=== PATIENT | male | born 1960 | race Caucasian/White ===

== ENCOUNTER 2019-03-27 06:55 | Inpatient (IN) ==
--- NOTE | 2019-03-27 07:23 | PROVIDER DOCUMENTATION ---
HPI-Syncope/Dizziness - General Chief Complaint: Stroke-Like Symptoms Stated Complaint: NEAR SYNCOPE,LT SIDE NUMB,DIZZINESS Time Seen by Provider: 03/27/19 07:19 Allergies/Adverse Reactions: Patient Allergies Allergy/AdvReac Type Severity Reaction Status Date / Time aspirin Allergy Severe ANAPHYLAXIS Verified 03/25/19 01:54 Home Medications: Home Medication List Medication Instructions Recorded Confirmed Last Taken Type Bisoprolol/Hydrochlorothiazide 1 ea PO DAILY 03/25/19 03/25/19 1 Day Ago History [Bisoprolol-Hctz 10-6.25 mg Tab] ~03/24/19 Dicyclomine [Bentyl] 10 mg PO Q6H PRN #30 cap 03/25/19 Unknown Rx Ergocalciferol (Vitamin D2) 1 cap PO Q7D 03/25/19 03/25/19 03/20/19 History [Vitamin D] Ketorolac [Toradol] 10 mg PO Q6H PRN PRN #20 tab 03/25/19 Unknown Rx Lisinopril 10 mg PO BID 03/25/19 03/25/19 1 Day Ago History ~03/24/19 Methocarbamol 500 mg PO QHS 03/25/19 03/25/19 1 Day Ago History ~03/24/19 Omeprazole 40 mg PO DAILY 03/25/19 03/25/19 1 Day Ago History ~03/24/19 Ondansetron [Zofran] 4 mg PO Q6H PRN PRN #30 tab 03/25/19 Unknown Rx Tramadol HCl 50 mg PO BID 03/25/19 03/25/19 1 Day Ago History ~03/24/19 - History of Present Illness-Syncope/Dizzy Nature of Presenting Problem: family reported that patient woke at 4:00 AM stated that his left side was numbed and he felt fainting. in the ER patient stated he was fine at this moment, no longer feeling numb or faint. patient denied pain, appeared comfortable. Onset/Duration: reports: this morning Timing: reports: resolved prior to arrival Position/Activity at time of episode: reports: standing Symptoms prior to episode: denies: headache, visual disturbance, nausea/vomiting, chest pain, rapid heart beat Loss of Consciousness: no loss of consciousness Location of injury. (If syncope resulted in an injury.): reports: head Current Symptoms: reports: lightheaded. denies: fever, chills, chest pain, abdominal pain, weakness, headache, headache, blurred vision, lightheaded - Dizziness Severity in ED: reports: moderate Dizziness Related Current/Associated Symptoms: reports: dizzy. denies: nausea/vomiting, headache Any recent trauma/injury?: reports: none Modifying Factors: improves with: nothing Patient usually:: reports: walks without assistance Review of Systems - Adult - REVIEW OF SYSTEMS - ADULT Constitutional: denies: fever, fatique Eyes: reports: no symptoms reported Ears, Nose, Mouth & Throat: reports: no symptoms reported Cardiovascular: reports: no symptoms reported Respiratory: reports: no symptoms reported Gastrointestinal: reports: no symptoms reported Genitourinary: reports: no symptoms reported Musculoskeletal: reports: no symptoms reported Integumentary: reports: no symptoms reported Neurological: reports: numbness, paresthesia, other (fainting). denies: slurred speech, syncope, tremors Psychiatric: reports: no symptoms reported Endocrine: reports: no symptoms reported Hematologic/Lymphatic: reports: no symptoms reported Allergic/Immunologic: reports: no symptoms reported Past History - Adult - PAST MEDICAL HISTORY-ADULT Review of Records: reports: Nursing Assessment Review Physical Exam-General - PHYSICAL EXAM-ADULT Initial Vital Signs Reviewed: Yes - CONSTITUTIONAL General Appearance: appears well, alert, no apparent distress - EYES Eyes: PERRL/EOMI - HEAD, EARS, NOSE, MOUTH & THROAT HENMT: normocephalic/atraumatic - NECK Neck: non-tender - RESPIRATORY Respiratory: chest non-tender, lungs clear, normal breath sounds, no pleuratic chest pain, no respiratory distress - CARDIOVASCULAR Cardiovascular: normal peripheral pulses, no edema, no JVD, bradycardia - GASTROINTESTINAL (ABDOMEN) Abdominal Exam: non tender, soft, no organomegaly - LYMPHATIC Lymphatic: no adenopathy - MUSCULOSKELETAL Back Exam: normal inspection, no CVA tenderness, no vertebral tenderness Extremity: normal range of motion, non-tender, normal gait, normal inspection, no pedal edema - SKIN Integumentary: normal color, normal turgor, warm/dry - 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 negative: aphasia, facial droop, focal weakness, motor weakness - PSYCHIATRIC Psych/Mental Status: normal mood/affect, normal thought content, normal thought process Progress - PLAN OF CARE/RESULTS Progress/Plan/Lab Results: Vital Signs - 8 hr 03/27/19 07:00 Temperature 97.9 F Pulse Rate 50 L Respiratory Rate 19 Blood Pressure 195/92 O2 Sat by Pulse Oximetry 100 Orders Category Date Time Status Cardiac Monitoring DIRECTED Care 03/27/19 07:05 Active Finger Stick Blood Sugar (ED) DIRECTED Care 03/27/19 07:05 Active Saline Loc NOW Care 03/27/19 07:05 Active CHEST-PORTABLE [RAD] Stat Exams 03/27/19 07:[address] HEAD W/O CONTRAST [CT] Stat Exams 03/27/19 07:05 Ordered CBC WITH ELECTRONIC DIFF [HEME] Stat Lab 03/27/19 07:05 Uncollected COMPREHENSIVE METABOLIC PANEL [CHEM] Stat Lab 03/27/19 07:05 Uncollected PROTIME WITH INR [COAG] Stat Lab 03/27/19 07:05 Uncollected PTT [COAG] Stat Lab 03/27/19 07:05 Uncollected TROPONIN T Stat Lab 03/27/19 07:05 Uncollected URINALYSIS W/POSS RFLX CULT [URINALYSIS] Stat Lab 03/27/19 07:05 Uncollected URINE DRUG SCREEN Stat Lab 03/27/19 07:05 Uncollected EKG [EKG] Stat Ther 03/27/19 07:05 Ordered Departure - Departure Referrals and Follow-Ups: Nora Cunningham [Primary Care Provider] -
[2019-03-27 07:35] LABS: BASO# 0.03 X1000 (0.0-0.2); BASO% 0.4 % (0.0-0.8); EOS# 0.26 X1000 (0.0-0.7); EOS% 3.7 % (0.0-10.0); HEMATOCRIT 44.8 % (42.0-52.0); HEMOGLOBIN 15.2 g/dL (14.0-18.0); IMM GRAN# 0.02 X1000 (0.0-0.04); IMM GRAN% 0.3 % (0.0-0.5); LYMPH# 2.22 X1000 (1.2-3.4); LYMPH% 31.3 % (20.5-51.1); MCH 27.5 PG (27-31); MCHC 33.9 g/dL (33-37); MCV 81.2 FL (81-99); MONO% 7.1 % (1.7-9.3); MPV 10.5 FL (7.4-10.4); NEUT# 4.06 X1000 (1.4-6.5); NEUT% 57.2 % (42.2-75.2); PLT 207 X1000 (130-400); RBC 5.52 XMIL (4.7-6.1); RDW 14.2 % (11.5-14.5); WBC 7.09 X1000 (4.8-10.8)
--- NOTE | 2019-03-27 07:48 | Diag Imaging Result Doc PS360 ---
CHEST-PORTABLE - 03/27/2019 INDICATION: stroke like symptoms COMPARISON: None FINDINGS: There is a characteristic epicardial fat pad at the cardiac apex. The lungs are clear. Heart size is normal. No pneumothorax or pleural effusion. IMPRESSION: Negative exam. Electronically signed by Nahun Forte 03/27/2019 7:46 AM
[2019-03-27 07:49] LABS: INR 1.17
[2019-03-27 07:50] LABS: PTT 32.7 Seconds (22.3-41.8)
[2019-03-27 07:56] LABS: AGAP 9; ALB/GLOB RATIO 1.2; ALBUMIN 4.2 g/dL (3.5-5.0); ALKALINE PHOSPHATASE 95 U/L (32-122); BUN 15 mg/dL (8-22); CALCIUM 8.9 mg/dL (8.8-10.2); CHLORIDE 103 mmol/L (98-107); COSMO 279; CREATININE 0.9 mg/dL (0.7-1.2); ESTIMATED GFR > 60; GLUCOSE 140 mg/dL (70-104); GOT 23 U/L (10-34); GPT 36 U/L (10-44); SODIUM 138 mmol/L (136-145); TCO2 26 mmol/L (25-35); TOTAL BILIRUBIN 0.44 mg/dL (0.20-1.00); TOTAL PROTEIN 7.8 g/dL (6.3-8.3)
--- NOTE | 2019-03-27 07:58 | Diag Imaging Result Doc PS360 ---
CT HEAD W/O CONTRAST - 03/27/2019 INDICATION: stroke like symptoms COMPARISON: None FINDINGS: The ventricles and sulci are normal in size and contour. There is trace periventricular white matter chronic microvascular ischemia. No intracranial mass or hemorrhage. The skull is intact. The sinuses mastoids and middle ears are clear. IMPRESSION: No acute process. This exam was performed using automated exposure control, adjustment of mA or kV according to patient size, and/or use of iterative reconstruction technique Electronically signed by Nahun Forte 03/27/2019 7:56 AM
--- NOTE | 2019-03-27 08:20 | EKG Report ---
Test Performed on : 03/27/2019 07:18:08 AM Test Reason : Stroke like symptoms Blood Pressure : / mmHG Vent. Rate : 048 BPM Atrial Rate : 048 BPM P-R Int : 230 ms QRS Dur : 092 ms QT Int : 462 ms P-R-T Axes : 034 008 039 degrees QTc Int : 412 ms Sinus bradycardia. with 1st degree AV block. Possible Inferior infarct , age undetermined Abnormal ECG No previous ECGs available Unconfirmed Result
[2019-03-27 08:58] LABS: URINE SOURCE CLEAN CATCH
[2019-03-27 09:10] LABS: BILIRUBIN URINE NEGATIVE (NEGATIVE); BLOOD URINE NEGATIVE (NEGATIVE); COLOR YELLOW; GLUCOSE URINE NEGATIVE (NEGATIVE); KETONE URINE NEGATIVE (NEGATIVE); LEUKOCYTES URINE NEGATIVE (NEGATIVE); NITRITE URINE NEGATIVE (NEGATIVE); PH URINE 6.5; PROTEIN URINE TRACE mg/dL (NEGATIVE); SP GRAVITY URINE 1.028; TURBIDITY URINE CLEAR (CLEAR); UROBILINOGEN URINE 2 mg/dL (NORMAL)
[2019-03-27 09:15] LABS: UR EPITHELIAL CELLS <10 /HPF (<10); URINE BACTERIA NEGATIVE /HPF; URINE RBC <10 /HPF (<10); URINE WBC <10 /HPF (<10)
[2019-03-27 09:19] LABS: UR AMPHETAMINES QUAL NONE DETECTED (NONE DETECT); UR BARBITUATES QUAL NONE DETECTED (NONE DETECT); UR BENZODIAZEPIN QUAL NONE DETECTED (NONE DETECT); UR CANNABINOIDS QUAL NONE DETECTED (NONE DETECT); UR COCAINE QUAL NONE DETECTED (NONE DETECT); UR METHADONE QUAL NONE DETECTED (NONE DETECT); UR OPIATES QUAL NONE DETECTED (NONE DETECT); UR OXYCODONE QUAL NONE DETECTED (NONE DETECT); UR PCP QUAL NONE DETECTED (NONE DETECT)
[2019-03-27] MEDS ORDERED: TYLENOL PO PRN (09:24)
[2019-03-27] MEDS ORDERED: ZOFRAN IV PRN (09:24)
--- NOTE | 2019-03-27 11:00 | HISTORY AND PHYSICAL ---
PRIMARY CARE PROVIDER: Dr. Nora Cunningham. HISTORY OF PRESENT ILLNESS: Mr. Triana is a 58-year-old male who carries a past medical history of bladder issues for which he is scheduled for surgery on 04/[address] Mario Leavitt, hypertension, arthritis for which he takes tramadol, restless leg syndrome for which he takes methocarbamol, GERD, reported CA 4 years ago, was recently given Toradol for gallbladder attack this past Monday night, but has not been taken yet. He reported issues with inner ear over a year ago. He has since had on and off dizziness since that time but has increased over the last 3 months. He reports at 4:00 a.m. this morning he had dizziness, head spinning, broke out in a cold sweat and the entire left side of his body went numb. There was no reported facial drooping or slurred speech. It had resolved by the time he got to the ED but he was having residual dizziness. His head CT did not show anything acute. We will put him on Povo, monitor his heart rate. He has been bradycardic with a first-degree AV block in the 40s. We are gong to hold all his home medications for now as some of those can calls dizziness and stroke-like symptoms as well. We will do a full neurological workup. PAST MEDICAL HISTORY: 1. Gallbladder issues, scheduled for surgery on 04/05. 2. Hypertension. 3. Arthritis. 4. Restless leg syndrome. 5. Gastroesophageal reflux disease. 6. Reported myocardial infarction 4 years ago. PAST SURGICAL HISTORY: Left shoulder surgery repair of ligaments after a dislocation. ALLERGIES: To aspirin, ibuprofen causes anaphylaxis. His throat swells. SOCIAL HISTORY: He is . Five children. Works as a diesel truck and plumbing contractor. FAMILY HISTORY: Mother of an CA at the age of 75. Brother of throat cancer. Sister was with brain cancer. REVIEW OF SYSTEMS: Twelve-point review of systems completely negative except for those mentioned in HPI. PHYSICAL EXAMINATION: VITAL SIGNS: Temperature is 97.7 degrees, heart rate 47, respirations 18, blood pressure 193/81, O2 is 97% on room air. GENERAL: Mr. Triana is a 58-year-old gentleman who is sitting up in the stretcher in no acute distress. HEENT: Atraumatic, normocephalic. JF. Poor dentition. Trachea midline. CARDIOVASCULAR: S1, S2 appreciated. No murmurs, gallops, or rubs noted. No lower extremity edema. RESPIRATORY: Lung sounds clear bilaterally. GI: GI was soft, nontender, nondistended. Positive bowel sounds 4 quadrants. NEUROLOGIC: Patient is awake, alert, oriented x4. Follows commands. Moves all extremities. Tongue midline. No residual numbness. Strong shoulder shrug. No pronator drift. No focal deficits noted. EXTREMITIES: Upper and lower extremity strength 5/5 small symmetrical. DIAGNOSTIC DATA: 1. Chest x-ray negative exam. 2. EKG sinus bradycardia with first-degree AV block at 48 beats per minute. 3. Head CT no acute process. LABORATORY DATA: White count 7, hemoglobin and hematocrit 15 and 44, platelet count is 207,000. Sodium 138, potassium 4.0, BUN 15, creatinine 0.9, blood glucose is 140. T bilirubin 0.44, AST 23, ALT 36. Troponin less than 0.010. Urinalysis is clear. Toxicology screen negative. ASSESSMENT AND PLAN: 1. Cerebrovascular accident. Transient ischemic attack versus inner ear or medication related dizziness. We will do a complete neurological workup. We will do MRI, MRA, carotids and echocardiogram. Monitor him on telemetry. Allow for permissive hypertension 220/120. Hold his tramadol, Toradol, and methocarbamol. He does have an anaphylactic allergy to aspirin. We will initiate him on Lipitor. Check a lipid profile. We will consult Neurology if warranted and continue with neurological checks. 2. Sinus bradycardia with a first-degree AV block. I will continue to monitor him on telemetry. The patient has been dealing with dizziness now for over a year. I will make sure to recheck an EKG in the a.m. 3. Hypertension. Will allow for permissive hypertension 220/120. 4. Arthritis, aware. 5. Restless leg syndrome, aware. 6. Gastroesophageal reflux disease. We will continue proton pump inhibitor. 7. Reported myocardial infarction 4 years ago. 8. Further recommendations to follow physician evaluation, laboratory and diagnostic data. Dictated by MAKENNA Greenfield for Rene Aguila MD cc: MD Nora De Guzman MD Hugh Nabers
--- NOTE | 2019-03-27 11:44 | Diag Imaging Result Doc PS360 ---
EXAM: MRI BRAIN W/WO CONTRAST 03/27/2019 HISTORY: stroke TECHNIQUE: T1 sagittal, axial and post gadolinium axial with coronal reformation, axial T2, FLAIR, DWI and coronal gradient echo. COMMENT: The current examination is compared with the previous study of 03/17/2017. There is no evidence of mass effect, bleed, or abnormal extra-axial fluid collection. There is no evidence of restricted diffusion. There is no evidence of abnormal gadolinium enhancement. Compared to the previous study the appearance the brain has not changed significantly. IMPRESSION: Normal MRI of the brain. Electronically signed by Benny Puente 03/27/2019 11:42 AM
--- NOTE | 2019-03-27 11:47 | Diag Imaging Result Doc PS360 ---
EXAM: MRA BRAIN W/O CONTRAST 03/27/2019 HISTORY: stroke TECHNIQUE: 3-D [id number] COMMENT: Both posterior indicating arteries are widely patent. The right P1 segment is hypoplastic or absent. The right posterior cerebral artery is supplied by the posterior communicating artery. Otherwise, there is no evidence of aneurysm or major branch occlusion. IMPRESSION: No evidence of major branch occlusion. Electronically signed by Benny Puente 03/27/2019 11:45 AM
[2019-03-27] MEDS ORDERED: FLU VACCINE IM ONE (14:01)
--- NOTE | 2019-03-27 16:45 | ECHO REPORT ---
ORDER DATE: 03/27/2019 INTERPRETING PHYSICIAN: Dr. Reece Lanier ECHOCARDIOGRAPHIC MEASUREMENTS: 1. Interventricular septum: 1.1 cm. 2. Left ventricular posterior wall: 1.1 cm. 3. Diastolic diameter: 5.4 cm. 4. Right atrium: 3.8 cm. SUMMARY OF THE 2-DIMENSIONAL IMAGIN. Aortic valve leaflets were sclerosed, trileaflet, opening normally. 2. Mitral valve was normal. 3. Tricuspid valve was normal. 4. Pulmonic valve not well visualized. 5. There is trace to mild mitral regurgitation. 6. Trace tricuspid regurgitation. 7. Peak velocity across the tricuspid valve 2 meters per second. 8. Peak velocity across the aortic valve was 2 meters per second. 9. There is no aortic stenosis or regurgitation. 10. There is borderline left atrial enlargement. 11. Normal left ventricular cavity size. 12. Estimated ejection fraction of 65%. 13. Right ventricle appears to be mildly dilated. 14. There is no pericardial effusion or obvious intracardiac mass or thrombus seen. cc: Reece Lanier MD
--- NOTE | 2019-03-27 23:18 | PROGRESS NOTE ---
DATE: 03/27/2019 SUBJECTIVE: Today Mr. Lopes presented to the emergency department because of acute onset of left- sided numbness and some weakness, associated with dizziness. Upon presentation he was found to have a systolic blood pressure of 195/92. He is hypertensive. He also has a history of a remote mild heart attack. OBJECTIVE: His current physical exam is for the most part unremarkable. His neurological exam did not show any paresthesia or anesthesia. The power is 5/5 in all extremities, and I was not able to elicit any visual deficits. LABORATORY DATA: His lab work has also been reviewed. The only thing abnormal is that his HDL cholesterol is 31. The rest of his lab work is within normal range. DIAGNOSTIC DATA: His MRI is completely normal. MRA showed no evidence of major branch occlusion. His echocardiogram has shown normal ejection fraction of 65%; right ventricle appears to be mildly dilated. ASSESSMENT AND PLAN: 1. Acute onset of left-sided paresthesia associated with vertigo. CT scan, MRI and MRA have completely been negative. Unsure if this was related to extreme uncontrolled hypertension or a transient ischemic attack. 2. Uncontrolled hypertension. The patient's blood pressures are a lot better controlled now. 3. Sinus bradycardia. The patient is on a beta-gita. He has been told that he had a mild heart attack and that is why he has been on that. 4. History of coronary artery disease, currently asymptomatic. 5. Dyslipidemia, with low HDL. The patient has been started on a statin drug. So in general Mr. Triana seems to be doing fairly okay. He does not seem to have any more neurological deficits. He is not dizzy. His MRI and MRA are completely negative. I think he probably had a transient ischemic attack versus just uncontrolled hypertension symptoms. We are going to surely observe him overnight and continue neurologic checks, and re-evaluate him in the morning. cc: Rene Aguila MD
[2019-03-28 07:13] LABS: BASO# 0.03 X1000 (0.0-0.2); BASO% 0.4 % (0.0-0.8); EOS# 0.19 X1000 (0.0-0.7); EOS% 2.8 % (0.0-10.0); HEMATOCRIT 43.9 % (42.0-52.0); HEMOGLOBIN 14.9 g/dL (14.0-18.0); IMM GRAN# 0.02 X1000 (0.0-0.04); IMM GRAN% 0.3 % (0.0-0.5); LYMPH# 2.29 X1000 (1.2-3.4); LYMPH% 34.1 % (20.5-51.1); MCH 27.7 PG (27-31); MCHC 33.9 g/dL (33-37); MCV 81.6 FL (81-99); MONO# 0.38 X1000 (0.11-0.59); MONO% 5.7 % (1.7-9.3); MPV 10.7 FL (7.4-10.4); NEUT% 56.7 % (42.2-75.2); PLT 218 X1000 (130-400); RBC 5.38 XMIL (4.7-6.1); RDW 14.1 % (11.5-14.5); WBC 6.71 X1000 (4.8-10.8)
--- NOTE | 2019-03-28 07:30 | ED EKG INTERP ---
This chart was entered by Tena Chua Scribe, acting as scribe for Ashanti Vu MD. EKG Interpretation - EKG Time of EKG reading by physician:: 07:18 EKG Read and Signed by:: Ashanti Vu EKG Interpretation (*Must complete 3 of following elements*): Abnormal Rate: 48 Rhythm: Sinus Bradycardia w/1st degree AV block [place]: normal QRS: normal ST Wave: normal Comments: possible inferior infarct, age undetermined Attestation - Physician/ FUENTES Attestation Patient care was provided by Advanced Practice Provider:: No The physician spent face to face time with patient:: Yes Advanced Practice Provider documentation review:: Supervising physician onsite and consulted in the evaluation and care of this patient. The physician did have a face to face encounter with the patient. This chart was documented by the indicated scribe, (Tena Chua Scribe) and accurately reflects the services I performed and decisions made by me, Ashanti Vu MD, as attested by the provider's signature.
--- NOTE | 2019-03-28 07:31 | EKG Report ---
Test Performed on : 03/28/2019 07:03:47 AM Test Reason : bradycardia Blood Pressure : / mmHG Vent. Rate : 046 BPM Atrial Rate : 046 BPM P-R Int : 248 ms QRS Dur : 092 ms QT Int : 468 ms P-R-T Axes : 025 015 044 degrees QTc Int : 409 ms Sinus bradycardia. with 1st degree AV block. Otherwise normal ECG When compared with ECG of 27-MAR-2019 07:18, (Unconfirmed) Borderline criteria for Inferior infarct are no longer present Confirmed by Mayco GUZMAN, Jamey Brady ([id number]) on 03/29/2019 6:59:36 AM
[2019-03-28 07:37] LABS: AGAP 12; ALB/GLOB RATIO 0.9; ALBUMIN 3.7 g/dL (3.5-5.0); ALKALINE PHOSPHATASE 89 U/L (32-122); BUN 13 mg/dL (8-22); CALCIUM 8.9 mg/dL (8.8-10.2); CHLORIDE 105 mmol/L (98-107); COSMO 284; CREATININE 0.9 mg/dL (0.7-1.2); ESTIMATED GFR > 60; GLUCOSE 153 mg/dL (70-104); GOT 23 U/L (10-34); GPT 35 U/L (10-44); POTASSIUM 3.8 mmol/L (3.5-5.1); SODIUM 141 mmol/L (136-145); TCO2 24 mmol/L (25-35); TOTAL BILIRUBIN 0.41 mg/dL (0.20-1.00); TOTAL PROTEIN 7.7 g/dL (6.3-8.3)
[2019-03-28] MEDS ORDERED: CITRATE OF MAGNESIA PO ONE (08:48)
[2019-03-28] MEDS: LIPITOR PO SCH (20:03)
[2019-03-28] MEDS: ANTIVERT PO SCH (20:05)
--- NOTE | 2019-03-28 22:02 | Carotid Study ---
DATE: 03/27/2019 REQUESTING PROVIDER: MAKENNA Carlisle LINE [employer]STRU[employer] SUPERINTENDENT: [place]. INDICATIONS: TIA versus CVA, with left-sided numbness. Previous comparison from 03/17/2017. EQUIPMENT: [employer] Vivid E9 ultrasound system with a 9L-D transducer. FINDINGS: Complete diagram of ultrasound images can be seen scanned in the patient's medical record. The peak systolic velocity noted on the right side in the mid internal carotid artery is noted to be 89. The peak systolic velocity noted on the left side in the distal internal carotid artery is noted to be 75. The calculated internal/common ratio on the right is 1.18 and left 1.13. Calculated stenosis on the right 0% to 39%, left 0% to 39%. There appears to be atherosclerosis noted to bilateral carotid arteries. This appears to be grossly stable from previous study. Both vertebral arteries were antegrade flow. INTERPRETATION: By strict velocity criteria, no hemodynamically significant flow-limiting stenosis noted in bilateral carotid arteries. cc: Parish Byers MD
--- NOTE | 2019-03-28 22:04 | PROGRESS NOTE ---
DATE: 03/28/2019 SUBJECTIVE: Today Mr. Triana referred to be doing well. He said he has already been evaluated by surgery, and there is a plan for a gallbladder removal tomorrow. He also did complain of some dizziness when he moves his head. OBJECTIVE: Vitals: Blood pressure is 114/63, pulse of 52, respirations 18, temperature 97.7 degrees. General: Mr. Rahman is a 58-year-old gentleman. He was in bed in no distress. HEENT: Mucosa is pink and moist. Anicteric. Acyanotic. Neck: Supple. Chest: Clear to auscultation. No crepitations. No rhonchi. Cardiovascular: Regular rate and rhythm. Gastrointestinal: Abdomen was soft. Central nervous system: Patient was awake, alert. There was no neurological deficit. LABORATORY DATA: CBC and CMP were completely normal. ASSESSMENT: 1. Acute onset of left-sided paresthesia. That has completely resolved. We think this was transient ischemic attack. MRI and MRA are negative. 2. Uncontrolled hypertension on presentation, improved. 3. Sinus bradycardia, stable. 4. History of coronary artery disease, currently asymptomatic. 5. Dyslipidemia with low HDL. Patient is on statin drugs. 6. Vertigo, presumably due to inner ear disease. The patient has been advised to follow up with ENT, and we will also start him on middle ear stabilizes. 7. Biliary dyskinesia patient pending cholecystectomy tomorrow. cc: Rene Aguila MD MTDD
[2019-03-29] MEDS: VALIUM PO SCH ×2 (06:59→23:59)
[2019-03-29] MEDS: ANTIVERT PO SCH ×3 (08:03→23:58)
[2019-03-29] MEDS ORDERED: LR 1,000 ML ONE (09:06)
[2019-03-29] MEDS ORDERED: SENSORCAINE 0.25%/EPI 1:200,000 ONE (09:06)
[2019-03-29] MEDS ORDERED: SODIUM CHLORIDE 0.9% ONE (09:06)
[2019-03-29] MEDS ORDERED: ZEMURON ONE (10:09)
[2019-03-29] MEDS ORDERED: ROBINUL ONE ×2 (10:09→12:00)
[2019-03-29] MEDS ORDERED: DIPRIVAN 1% ONE (10:11)
[2019-03-29] MEDS ORDERED: XYLOCAINE-MPF 2% ONE (10:11)
[2019-03-29] MEDS ORDERED: ZOFRAN ONE (10:11)
[2019-03-29] MEDS ORDERED: FENTANYL ONE (10:11)
[2019-03-29] MEDS ORDERED: KEFZOL 1 GM/D5W 1 GM/50 ML IVPB ONE (10:56)
[2019-03-29] MEDS ORDERED: DECADRON ONE (11:16)
[2019-03-29] MEDS ORDERED: LABETALOL (DOSE) ONE (11:39)
[2019-03-29] MEDS ORDERED: NEOSTIGMINE ONE (11:59)
--- NOTE | 2019-03-29 12:07 | Diag Imaging Result Doc PS360 ---
OPERATIVE CHOLANGIOGRAM - 03/29/2019 INDICATION: GALLBLADDER DX TECHNIQUE: The exam was performed by the patient's surgeon. One image was submitted. Total fluoroscopy time was 46 seconds. COMPARISON: None FINDINGS: Contrast was infused into the cystic duct. This outlines a normal caliber common bile duct. No definite filling defect. There is really not much passage of contrast into the duodenum however. IMPRESSION: Nonspecific findings. Electronically signed by Nahun Forte 03/29/2019 12:05 PM
[2019-03-29] MEDS ORDERED: DILAUDID ONE (12:08)
[2019-03-29] MEDS ORDERED: VENTOLIN HFA ONE (12:13)
[2019-03-29] MEDS ORDERED: D5 1/2 NS 1,000 ML ONE (12:59)
[2019-03-29] MEDS ORDERED: NORCO-10 ONE (13:20)
[2019-03-29] MEDS ORDERED: NORCO-10 PO PRN (14:27)
[2019-03-29] MEDS ORDERED: MORPHINE IV PRN (14:27)
[2019-03-29] MEDS ORDERED: ZOFRAN PO PRN (14:28)
[2019-03-29] MEDS ORDERED: ZOFRAN IV PRN (14:28)
[2019-03-29] MEDS ORDERED: PROTONIX IV SCH (14:30)
[2019-03-29] MEDS ORDERED: SODIUM CHLORIDE 0.9% INJ SCH (14:30)
[2019-03-29] MEDS: D5 1/2 NS 1,000 ML IV SCH ×2 (14:44→23:59)
--- NOTE | 2019-03-29 15:46 | PROGRESS NOTE ---
DATE: 03/29/2019 SUBJECTIVE: Today, Mr. rTiana refers to be doing well. He denied any more numbness or weakness on any of his extremities. He also denied any vertigo. He underwent laparoscopic cholecystectomy early on today with Dr. Leavitt. OBJECTIVE: Vital signs: Blood pressure is 178/79, his pulse is 55, temperature is 57.5. General: Mr. Triana is a 58 years old gentleman. He was in bed, no distress. HEENT: Mucosa is pink and moist. Anicteric. Acyanotic. Neck: Supple. Chest: Good air entry bilateral. There were no crepitations, no rhonchi. Cardiovascular: Regular rate and rhythm. No murmurs, no rubs, no gallops. Abdomen: Soft, slightly distended because of recent laparoscopic surgery. There are also fresh laparoscopic scars on the anterior abdominal wall which is covered. Extremities: No pedal edema. CENTRAL NERVOUS SYSTEM: Patient is awake, alert, and oriented. LABORATORY DATA: None for today. MEDICATIONS: Have all been reviewed and no changes. ASSESSMENT: 1. Biliary dyskinesia. The patient is status post laparoscopic cholecystectomy with Dr. Leavitt today. 2. Acute onset of left-sided paresthesia. This is resolved. Questionable for transient ischemic attack. MRI and MRA negative. 3. Uncontrolled hypertension on presentation, improving. We will continue with current regimen. 4. Sinus bradycardia. The patient is on bisoprolol, which has been withheld. 5. History of coronary artery disease, currently asymptomatic. 6. Dyslipidemia with low HDL. Patient is on statin drugs. 7. Vertigo, most likely due to inner ear disease. The patient has been advised to follow up with ENT and he has been started with vestibular stabilizes. So in genera, Mr. Triana is doing well. He presented mainly because of paresthesia on his left side which has completely resolved. Neuro workup was unremarkable. During the hospital course, Dr. Leavitt came to evaluate him. He had already planned outpatient cholecystectomy for biliary dyskinesia so that was done while he is here. He is immediate postop. We are going to observe him till tomorrow. Hopefully, we can get him out tomorrow if he is okay with Surgery. cc: Rene Aguila MD
--- NOTE | 2019-03-29 18:38 | OPERATIVE NOTE ---
PROCEDURE DATE: 03/29/2019 PREOPERATIVE DIAGNOSIS: Chronic cholecystitis. POSTOPERATIVE DIAGNOSIS: Acute and chronic cholecystitis. PROCEDURE: Laparoscopic cholecystectomy with cholangiogram. SURGEON: Mario Leavitt MD. DESCRIPTION: The patient was brought to the operating room. After satisfactory induction of IV and endotracheal anesthesia, athrombic TEDs were placed. His abdomen was broadly prepped and draped in the appropriate manner for laparoscopy. Initially, the infraumbilical area was infiltrated with 0.25% Marcaine with epinephrine. Chris approach was used to place a Chris trocar. The abdomen was insufflated to 3.5 L of carbon dioxide. Again, after infiltration with Marcaine and epinephrine, one 10 and two 5 mm trocars were placed across the right epigastrium. The gallbladder was seen to be red and intensely inflamed. The patient was repositioned. The gallbladder was grasped and retracted superiorly. Omental adhesions were peeled down. The hilar structures were dissected. The cystic artery was skeletonized, doubly clipped, and divided. The gallbladder neck was then freed up. The cystic duct cholangiogram was not very satisfactory, but it did reveal contrast into the duodenum. The catheter was removed. The duct was doubly clipped and divided, and the gallbladder was dissected from the liver bed with the use of the monopolar scissors. There was some posterior wall necrosis in the gallbladder itself, but no evidence of liver abscess. The bile itself had cholesterol crystals that were visible. The gallbladder was eventually freed up, placed in an EndoCatch bag, and removed. Reinspection of the liver bed revealed some small bleeding points that were controlled by electrocautery or Surgicel gauze. The subhepatic and subphrenic spaces were aspirated free of the small amount of bile and blood. All trocars were removed after abdominal deflation. The subumbilical incision underwent fascial closures of 0 Surgilon. All skin incisions were closed with stainless steel clips. Sterile dressings were applied. He was awakened and extubated in the operating room and transferred to Recovery. Estimated blood loss was about 20 mL. cc: Mario Leavitt MD
[2019-03-29] MEDS: KEFZOL 1 GM/D5W 1 GM/50 ML IVPB IV SCH (18:40)
--- NOTE | 2019-03-29 21:35 | PROGRESS NOTE ---
DATE: 03/29/2019 ADDENDUM: This evening at about 6:30 I was coming out of the hospital, and I saw Mr. Triana's also coming into the hospital at the main entrance where the ambulances do park. She did call out to me. When I went to her, she said she was very, very upset and mad with me because I was not listening to her and that I projected myself very arrogantly when I met them. I was slightly taken aback by her comments, so I asked her to let me know if there was anything that I had said during our encounter that made her feel that way. She said I was not listening to the fact that everything that was happening to her , Mr. Triana, was related to his gallbladder and that I was going to discharge her yesterday, and if I had done that he could have . I was still kind of surprised about her comments so I told her I had read the operative report where the gallbladder was removed, but I was not sure that he would have because of the gallbladder if he had gone home. In any case during our conversation, the son was coming to the hospital and met me and the mother talking so he joined the conversation. I greeted him and told him that I was very grateful and pleased to see him and that I was kind of surprised at what the mother was saying, however, could understand her frustrations if she felt that she was not being listened to. I did, however, ask the son and this is the I think the middle son who was sitting right next beside me 3 days ago when I met all 3 of them with the mother at the patient's bedside, so I did ask if there was any indications or any inferences that I made or projected myself in any way that he perceived me to be arrogant, and the son said not to him and he did not perceive my presence or my actions to be arrogant; however, he is not his mom, and he cannot say what the perception the mother had. He, however, did understand that the symptoms that were presented was more concerning of stroke and that we did the right thing to try to rule it out. The , however, was extremely upset, at some point was raising her voice, and she did tell me that maybe I did not do the class of gallbladder diseases in school. I told her it is very possible I might not be very detailed in gallbladder disease, and she also did say that my bedside manners was extremely poor and probably I did not take that class either at the medical school. I did, however, tell her that as for bedside manners, I think did pretty well during that class. Ms. Triana also said that the patient presentation, which was the blood pressure being high and that the pulse being low and that pain and headaches and the fact that he had all the left side numbness was all reflective of a gallbladder disease, which I told her it could be possible by it is less likely and that his presenting symptoms seems to suggest some acute neurological event and that is why both the emergency department evaluation and my initial evaluation made us go down the pathway of possible CVA. BACKGROUND HISTORY: Mr. Triana was admitted on 03/27/2019 early in the morning. He had presented to the emergency room because of stroke-like symptoms, acute onset of headache, dizziness with head spinning and the entire left side numbness. Upon presentation, his blood pressure was slightly elevated about 195/92, and his pulse was slightly low at 48-50. Of note Mr. Triana also has coronary artery disease and has been on beta gita, in this case bisoprolol, and I think that is what is causing some of his sinus bradycardia. I did notify the that whenever there is such a presentation of acute onset, it is more concerning for an acute stroke, and that is why an MRI and MRA were done and none of them reveal any disease process. I saw Mr. Triana late on 03/27/2019. My documentation reflects 174, but that could have been about an hour earlier. When I went to see him, the 3 sons were all there. The was there and the patient. They were all at the bedside. There was a very tall son. There was middle one who sat right beside me and there was a younger son who for the most part was on his phone. When I went to see Mr. Triana, the first thing he told me was that his main complaint was that he had acute onset of headaches. He became nauseated. He had vertigo, and his left side became numb. I spoke extensively to them. I opened the chart and reviewed MRI, the CT scan and MRA results as well as the echocardiogram and the fact that everything was normal. At that point, the did say that Mr. Triana was also suffering from his gallbladder, and she thought that all his presentation was related to the gallbladder; however, I did make it clear at that time that it did not really sound quite reflective of a acute gallbladder disease . The told me that his primary care doctor, Dr. Nora Cunningham, has already done multiple studies on him and they know that the gallbladder is just not working at all and that they have gone to even see another surgeon who was charging them $4000 and that they did not have that amount of money and that they have finally gone to see Dr. Leavitt, and Dr. Leavitt has charged them $800, $700 for himself and $100 for the hospital, and that they have an appointment for surgery on 04/05/2019 so I did say we are going to observe Mr. Triana overnight. If he remained asymptomatic, we would be able to discharge him and then let him follow up with Dr. Leavitt for the elective surgery. Everything seems to have been understood perfectly. They asked a couple of questions, which I did my best to answer all of them. At the end of the encounter, they were very satisfactorily. We all shook hands, and I left. Medical student was also with me at the time. The following day, which would have been 03/28/2019, I went back to see Mr. Triana. The tallest son was at the bedside. At that time, Mr. Triana told me all his left-sided numbness had completely gone, and that he was feeling better and that he just felt slightly dizzy when he stood up and looked at the left side. At that time, we spoke extensively, and he made me to understand that he has had issues with his inner ear before and that every now and then he has tinnitus in the ear. I did tell him that it is very possible that his vertigo is inner ear related, especially now that we know the MRI is completely negative and MRA of the posterior circulation was also negative and I was going to start him on Valium and meclizine, and at that point, Mr. Triana himself told me that the surgeon (Dr. Leavitt) had come in to see him and that they have already scheduled an appointment for his surgery for tomorrow. I am not quite sure who consulted surgery, but I was not aware that such consult had been placed. At any case, I went out and spoke with the charge nurse, and the charge nurse did tell me that yes there was an order even for a laparoscopic cholecystectomy with Dr. Leavitt the following morning so I did tell Mr. Triana and the son that I was okay for them to stay as long as the surgery will be done the following day, and after the surgery we would wait for the recovery to be over and to hopefully get him home. I also advised that he would definitely need ENT to evaluate for the vertigo and possible inner ear related pathology. They were pretty satisfactory with me, and I left. Today, I saw Mr. Triana again after the surgery. He refers to be doing well. There was nobody this time with him in his room. I told him I will see him tomorrow and then I just left out. Throughout the interactions I have had with Mr. Triana she had almost no complaining about his gallbladder, and none of his physical exams even elicited any pain in his abdomen. His neurological evaluation subsequently has been completely normal. He did say he gets still slightly vertigo whenever he moves his head, but otherwise he was feeling remarkably well. I think Mr. Triana is doing much better, and I will continue to follow him and wait for further recommendations from surgery as to their recommendations going forward. I will also recommend that Mr. Triana follows up with ENT because of a genuine inner ear disease that he could potentially have at least by their symptoms. Today when I was talking to the almost outside the hospital, she did say that Mr. Triana is feeling a lot better now after the surgery. I did remind her that even yesterday the gallbladder was still there yet Mr. Triana told me he was doing much better than the day before. The disputed this, and said Mr. Triana would have told me anything pain, but she knew that Mr. Triana was not doing well, and that he has only been well after the gallbladder was removed. The son and the mother ultimately told me goodbye and they left, went into the hospital and then I left out. cc: Rene Aguila MD MTDKarla
[2019-03-29] MEDS: LIPITOR PO SCH (23:58)
[2019-03-29] MEDS: PERIDEX MT SCH (23:58)
[2019-03-30] MEDS: LIPITOR PO SCH
[2019-03-30] MEDS: KEFZOL 1 GM/D5W 1 GM/50 ML IVPB IV SCH (04:26)
[2019-03-30 07:21] VITALS: BP 146/64
[2019-03-30 07:53] LABS: BASO# 0.01 X1000 (0.0-0.2); BASO% 0.1 % (0.0-0.8); HEMATOCRIT 42.9 % (42.0-52.0); HEMOGLOBIN 14.8 g/dL (14.0-18.0); IMM GRAN# 0.04 X1000 (0.0-0.04); IMM GRAN% 0.3 % (0.0-0.5); LYMPH# 2.01 X1000 (1.2-3.4); LYMPH% 12.8 % (20.5-51.1); MCH 27.7 PG (27-31); MCHC 34.5 g/dL (33-37); MCV 80.3 FL (81-99); MONO# 0.95 X1000 (0.11-0.59); MONO% 6.1 % (1.7-9.3); MPV 10.8 FL (7.4-10.4); NEUT# 12.69 X1000 (1.4-6.5); NEUT% 80.7 % (42.2-75.2); PLT 217 X1000 (130-400); RBC 5.34 XMIL (4.7-6.1); RDW 13.7 % (11.5-14.5)
[2019-03-30] MEDS: PERIDEX MT SCH (08:06)
[2019-03-30] MEDS: ANTIVERT PO SCH (08:06)
[2019-03-30 08:23] LABS: AGAP 13; ALB/GLOB RATIO 0.9; ALBUMIN 3.4 g/dL (3.5-5.0); ALKALINE PHOSPHATASE 82 U/L (32-122); BUN 7 mg/dL (8-22); CALCIUM 8.6 mg/dL (8.8-10.2); CHLORIDE 104 mmol/L (98-107); COSMO 281; CREATININE 0.8 mg/dL (0.7-1.2); ESTIMATED GFR > 60; GLUCOSE 128 mg/dL (70-104); GOT 43 U/L (10-34); GPT 55 U/L (10-44); POTASSIUM 3.6 mmol/L (3.5-5.1); SODIUM 141 mmol/L (136-145); TCO2 24 mmol/L (25-35); TOTAL BILIRUBIN 0.46 mg/dL (0.20-1.00)
--- NOTE | 2019-03-30 10:46 | PROGRESS NOTE ---
DATE: 03/30/2019 SUBJECTIVE: This morning Mr. Triana refers to be doing well. He denies any more dizziness. He said he has been tolerating his diet and he is not hurting. OBJECTIVE: Vital signs: Blood pressure is 146/64, pulse of 56, respiration is 16, temperature 98.6 degrees. The patient was saturating 97% on room air. General: On general exam, Mr. Triana is a 58-year-old male. He is in bed in no distress. HEENT: Mucosa is pink and moist. Anicteric. Acyanotic. Neck: Supple. Chest: Good air entry bilateral. There were no crepitations, no rhonchi. Cardiovascular: Regular rate and rhythm. Abdomen: Soft, nontender. There are some new laparoscopic scars on the anterior abdominal wall. There was no drain. Extremities: No pedal edema. GLASSWARE VERIFIER: Patient is awake, alert, oriented. There is no focal neurological deficit. LABORATORY DATA: WBC is up to 15.70, hemoglobin is 14.8, platelet count of 217. Chemistry is also reviewed. Minimally elevated liver enzymes, otherwise unremarkable. CURRENT MEDICATIONS: Have also been reviewed. No changes. Patient has been on cefazolin for perisurgical antimicrobial coverage. ASSESSMENT: 1. Biliary dyskinesia. The patient is status post laparoscopic cholecystectomy with Dr. Leavitt. Today is day 1 postop. He seems to be tolerating his clear liquid. I think this will be advanced today by Surgery. 2. Acute onset of left-sided hemiparesthesia. This has completely resolved. There was a question of a transient ischemic attack. Magnetic resonance imaging and magnetic resonance angiogram were negative. 3. Uncontrolled hypertension on presentation, improved. 4. Sinus asymptomatic bradycardia. 5. History of coronary artery disease, currently asymptomatic. 6. Dyslipidemia with low HDL. 7. Vertigo, most likely due to inner ear disease. The patient is currently on Valium and meclizine. He refers to be feeling a whole lot better, and we have advised that he follows up with Ears/Nose/Throat. Social issues. I did bring up my conversation with Ms. Triana yesterday with the patient. Mr. Triana on the contrary says that he feels a lot better. He feels that he has all the time been listened to and that the entire staff, including myself, have been extremely compassionate and very kind to him. He said he is very grateful for the services that he has received. In particular, he said he thinks I was a very good doctor and that he thinks I have been extremely polite and kind to him. Disposition: We are going to wait on Dr. Leavitt evaluation today. If from surgical standpoint he is okay for the patient to be discharged, I think Mr. Triana can be discharged accordingly. From medical standpoint, we think he is okay for discharge. cc: Rene Aguila MD MTD
--- NOTE | 2019-03-30 18:33 | DISCHARGE SUMMARY ---
ADMISSION DATE: 03/27/2019 DISCHARGE DATE: 03/30/2019 DISPOSITION: Home. FOLLOWUP: Will be from 1. Dr. Nora Cunningham. 2. Dr. Leavitt. 3. Patient is also advised to follow up with ENT. CONSULTATION: Patient was seen by surgery. INVASIVE PROCEDURES: Laparoscopic cholecystectomy with intraoperative cholangiogram was done by Dr. Leavitt. ADMISSION DIAGNOSIS: 1. Transient ischemic attack. 2. Sinus abbey. 3. Hypertension. 4. Arthritis . 5. Gastroesophageal reflux disease. DIAGNOSIS AT THE TIME OF DISCHARGE: 1. Acute onset of left-sided hemiparesthesia completely resolved. MRI and MRA were all negative, we think this was probably transient ischemic attack. 2. Uncontrolled hypertension on presentation improved. 3. Asymptomatic sinus bradycardia. 4. History of coronary artery disease. 5. Dyslipidemia. 6. Biliary dyskinesia status post laparoscopic cholecystectomy. 7. Vertigo presumably due to inner ear disease associated with tinnitus. DISCHARGE MEDICATIONS: 1. Vitamin D. 2. Lisinopril 10 mg b.i.d. 3. Methocarbamol 500 p.o. at bedtime p.r.n. 4. Omeprazole 40 mg p.o. daily. 5. Cyanocobalamin. 6. Valium 2 mg p.o. at bedtime. 7. Meclizine 12.5 p.o. 3 times per day. PRESENTING COMPLAINT: Numbness of the left side of the body. HISTORY OF PRESENTING COMPLAINT: Mr. Triana is a 58 years old male with multiple comorbidities who presented to the emergency department because of acute onset of dizziness, headaches and left-sided numbness. Mr. Triana was admitted for to rule out stroke. HOSPITAL COURSE: Mr. Triana was admitted to the medical floor. An MRI and MRA was done immediately that same day which came out negative. On presentation he was found to have elevated blood pressure which was titrated during the hospital course. Mr. Triana left-sided numbness completely resolve almost the same day. He did also make mention of tinnitus and multiple episodes of vertigo. With a negative MRI we thought that this was more related to an inner ear problem. He was started on vestibular stabilizers and has been advised to follow up with ENT. Mr. Triana had made mention that he did have appointment with Dr. Leavitt on 04/05/2019 for gallbladder removal. During the hospital course somehow Dr. Leavitt got to know that Mr. Triana was admitted so he came to evaluate him and attempt to evaluate him and a decision was made to do the gallbladder removal since the patient is already admitted. This was successfully done. Postoperatively Mr. Triana is doing well. Today he was seen by Dr. Leavitt and he thinks from surgical standpoint the patient can be discharged. Medically we think Mr. Triana is stable. He does not have any more numbness on the left side. He is not feeling any more dizziness or vertigo. We think he is medically stable. DISCHARGE VITALS: Blood pressure is 146/64, pulse 63, respiration is 14. TIME SPENT: 38 minutes. cc: Rene Aguila MD
== END 2019-03-30 10:29 | disposition home or self-care (01) | DRG 988 ==
LOC: ED 06:55 → EDIPHOLD 06:56 → 4N 10:42
PROVIDERS: ATTEND Internal Medicine